=== PATIENT | male | born 1990 | race Caucasian/White ===

== ENCOUNTER 2024-05-13 07:24 | Day surgery (SDC) | payer OTHER ==
[2024-05-07 14:25] VITALS: BMI 36.9
[2024-05-13] MEDS ORDERED: LIDOCAINE HCL/PF 2% SDV 5ML VIAL ONE (08:18)
[2024-05-13] MEDS ORDERED: MIDAZOLAM HCL 2 MG/2 ML SINGLE DOSE VIAL ONE (08:19)
[2024-05-13] MEDS ORDERED: PROPOFOL 20 ML ONE (08:19)
[2024-05-13] MEDS ORDERED: BUPIVACAINE HCL/EPINEPHRINE/PF 30 ML VIAL IJ ONE (10:14)
[2024-05-13] MEDS ORDERED: BUPIVACAINE HCL/PF 0.5% (5MG/ML) 10 ML VIAL ONE (10:19)
[2024-05-13] MEDS ORDERED: ceFAZolin SODIUM 1 GM VIAL ONE (11:41)
[2024-05-13] MEDS ORDERED: oxyCODONE HCL 5 MG TABLET PO PRN ×2 (12:16)
[2024-05-13] MEDS ORDERED: PROMETHAZINE HCL 25 MG/1 ML VIAL IVPB PRN (12:16)
[2024-05-13] MEDS ORDERED: ONDANSETRON 4 MG/2 ML VIAL IVPUSH PRN (12:16)
[2024-05-13] MEDS ORDERED: LACTATED RINGERS SOLUTION 1,000 ML IV SCH (12:30)
[2024-05-13] MEDS ORDERED: ONDANSETRON 4 MG/2 ML VIAL ONE (13:00)
[2024-05-13] MEDS ORDERED: KETOROLAC TROMETHAMINE 30 MG/1 ML VIAL ONE (13:00)
[2024-05-13] MEDS ORDERED: ACETAMINOPHEN INJECTION 100 ML ONE (13:13)
[2024-05-13] MEDS: ACETAMINOPHEN 1000 MG/100 ML BAG IVPB ONE (13:15)
[2024-05-13] MEDS ORDERED: FENTANYL CITRATE/PF 50 MCG/ML VIAL ONE (13:39)
[2024-05-13 14:22] VITALS: RESP 20; TEMP 97.5
[2024-05-13 15:13] VITALS: BP 110/64; PULSE 72
== END 2024-05-13 15:00 | disposition home or self-care (01) ==
LOC: FASU 07:24
PROVIDERS: ATTEND Orthopaedic Surgery
PROC: 0RBK4ZZ Excision of Left Shoulder Joint, Percutaneous Endoscopic Approach (ICD-10-PCS; principal; 2024-05-13 12:00)
PROC: 0LS40ZZ Reposition Left Upper Arm Tendon, Open Approach (ICD-10-PCS; 2024-05-13 12:00)
DX: S46.012A Strain of muscle(s) and tendon(s) of the rotator cuff of left shoulder, initial encounter (principal); M75.22 Bicipital tendinitis, left shoulder; S43.432A Superior glenoid labrum lesion of left shoulder, initial encounter; M65.812 Other synovitis and tenosynovitis, left shoulder; M75.52 Bursitis of left shoulder; M75.02 Adhesive capsulitis of left shoulder; X58.XXXA Exposure to other specified factors, initial encounter; Y93.9 Activity, unspecified; Y92.9 Unspecified place or not applicable
CPT/HCPCS: 88304-TC; 94760; C1713; J0131